=== PATIENT | female | born 1960 | race African-American/Black ===

== ENCOUNTER 2017-12-27 01:09 | Inpatient (IN) | payer OTHER ==
[~2017-12-27] VITALS: Ht 162.6 cm; Wt 91.2 kg
--- NOTE | ~2017-12-27 | EKG ---
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: RC : 1960 Requested By: Mason Wallace Order Number: [id number] MD: Jose Luis Mendieta Measurements Intervals [place] Rate: 87 P: 35 SC: 162 QRS: 24 QRSD: 95 T: 18 QT: 381 QTc: 459 Interpretive Statements Sinus rhythm Abnormal R-wave progression, early transition No previous ECG available for comparison Electronically Signed On 12-30-2017 9:00:24 CDT by Jose Luis Mendieta [email or web address] <ELECTRONICALLY SIGNED> By: Jose Luis Mendieta MD, [facility] 12/30/17 0900 0139 0139 Jose Luis Mendieta MD, FACC /EPI
[2017-12-27 01:20] VITALS: BP 139/92
[2017-12-27] MEDS ORDERED: PREZISTA800 MG PO (01:25)
[2017-12-27] MEDS ORDERED: DESCOVY 200-251 EACH PO (01:26)
[2017-12-27] MEDS ORDERED: NORVIR100 M1 PO (01:26)
[2017-12-27] MEDS ORDERED: LISINOPRIL20 MG PO (01:26)
[2017-12-27] MEDS ORDERED: IBUPROFEN 800800 M1 PO (01:27)
[2017-12-27] MEDS ORDERED: AMBIEN 5 MG TABL5 M1 PO (01:27)
[2017-12-27] MEDS ORDERED: HYDROCHLOROTH12.5 M1 PO (01:27)
[2017-12-27] MEDS ORDERED: ONE-A-DAY WOMENS PO (01:28)
[2017-12-27 01:35] LABS: URINE BILIRUBIN NEGATIVE (Negative); URINE BLOOD TRACE (Negative); URINE CLARITY CLEAR; URINE COLOR YELLOW; URINE GLUCOSE-RANDOM* NEGATIVE (Negative); URINE KETONES NEGATIVE (Negative); URINE LEUKOCYTES-REFLEX 1+ (Negative); URINE NITRITE-REFLEX NEGATIVE (Negative); URINE PROTEIN (DIPSTICK) NEGATIVE (Negative); URINE SPECIFIC GRAVITY 1.015 (1.005-1.035); URINE UROBILINOGEN 0.2 E.U./dl (0.2-1.0)
[2017-12-27 01:46] LABS: HYALINE CASTS 0-3 Few /LPF (None Seen); SQUAMOUS 0-3 Few /LPF (0-3)
[2017-12-27 01:47] LABS: CRYSTALS None Seen /LPF (None Seen); URINE RBC 0-2 Rare /HPF (0-2); URINE WBC-REFLEX 6-15 Few /HPF (0-5)
[2017-12-27 02:56] LABS: ABSOLUTE NEUTROPHILS 5.6 thou/uL (1.4-8.2); BASOPHILS 0.5 % (0.0-2.0); EOSINOPHILS 0.9 % (0.0-3.0); HEMATOCRIT 40.4 % (37.0-47.0); HEMOGLOBIN 14.1 gm/dL (12.0-15.0); LYMPHOCYTES 26.8 % (24.0-44.0); MCH 34.1 pg (26.0-34.0); MCV 97.6 fL (80.0-100.0); MONOCYTES 5.6 % (1.0-8.0); PLATELET COUNT 263 thou/uL (150-400); POLYS 66.2 % (36.0-66.0); RBC 4.14 mil/uL (4.20-5.00); WBC 8.5 thou/uL (4.0-11.0)
[2017-12-27 03:04] LABS: ANION GAP 8 mmol/L (7-16); BUN 9 mg/dL (7-18); CHLORIDE 102 mmol/L (98-107); CO2 29 mmol/L (21-32); GLUCOSE 116 mg/dL (74-106); POTASSIUM 3.3 mmol/L (3.5-5.1); SODIUM 139 mmol/L (136-145)
[2017-12-27 03:12] LABS: ALBUMIN 3.8 g/dL (3.4-5.0); LIPASE 156 U/L (73-393); SGOT 19 U/L (15-37); SGPT 29 U/L (30-65); TOTAL BILIRUBIN 0.4 mg/dL (<0.1-1.0); TOTAL PROTEIN 7.4 g/dL (6.4-8.2); TROPONIN-I <0.06 ng/mL (<0.06)
[2017-12-27 06:32] VITALS: BP 145/85
[2017-12-27 07:02] VITALS: BP 127/68
[2017-12-27 08:16] VITALS: BP 135/79
[2017-12-27 15:22] VITALS: BP 124/80
[2017-12-27 19:17] VITALS: BP 126/78
[2017-12-28 04:19] VITALS: BP 128/63
[2017-12-28 06:56] LABS: ABSOLUTE NEUTROPHILS 2.7 thou/uL (1.4-8.2); BASOPHILS 0.3 % (0.0-2.0); EOSINOPHILS 2.2 % (0.0-3.0); HEMATOCRIT 35.7 % (37.0-47.0); HEMOGLOBIN 12.9 gm/dL (12.0-15.0); MCH 34.6 pg (26.0-34.0); MCHC 36.1 g/dL (28.0-37.0); MCV 95.9 fL (80.0-100.0); MONOCYTES 7.4 % (1.0-8.0); PLATELET COUNT 226 thou/uL (150-400); POLYS 50.1 % (36.0-66.0); RBC 3.72 mil/uL (4.20-5.00); RDW 12.4 % (10.5-14.5); WBC 5.5 thou/uL (4.0-11.0)
[2017-12-28 07:09] LABS: CREATININE 0.9 mg/dL (0.6-1.0); MAGNESIUM 1.9 mg/dL (1.8-2.4); POTASSIUM 3.8 mmol/L (3.5-5.1)
[2017-12-28 07:10] LABS: CALCIUM 8.5 mg/dL (8.5-10.1)
[2017-12-28 08:16] VITALS: BP 123/72
[2017-12-28 16:26] VITALS: BP 142/82
[2017-12-28 19:30] VITALS: BP 130/76
[2017-12-29 03:55] VITALS: BP 122/70
[2017-12-29 07:23] LABS: ALBUMIN 3.1 g/dL (3.4-5.0); CALCIUM 8.7 mg/dL (8.5-10.1); CREATININE 0.9 mg/dL (0.6-1.0); PHOSPHORUS 3.2 mg/dL (2.5-4.9); POTASSIUM 3.8 mmol/L (3.5-5.1)
[2017-12-29] MEDS ORDERED: CIPRO500 MG PO (07:38)
[2017-12-29] MEDS ORDERED: FLAGYL500 MG PO (07:39)
[2017-12-29 07:46] VITALS: BP 122/70
[2017-12-29 07:50] VITALS: BP 129/79
== END 2017-12-29 12:35 | disposition home or self-care (01) | DRG 392 ==
LOC: ER 01:09 → EROBS 05:37 → 3W 05:37
PROVIDERS: Emergency Medicine; Hospitalist; Nurse Practitioner
DX: K52.9 Noninfective gastroenteritis and colitis, unspecified (principal); N39.0 Urinary tract infection, site not specified; I10 Essential (primary) hypertension; E87.6 Hypokalemia; Z21 Asymptomatic human immunodeficiency virus [HIV] infection status; Z79.899 Other long term (current) drug therapy; Z90.49 Acquired absence of other specified parts of digestive tract; Z88.8 Allergy status to other drugs, medicaments and biological substances
CPT/HCPCS: 10080